=== PATIENT | female | born 1975 | race Caucasian/White ===

== ENCOUNTER 2017-06-21 09:14 | Emergency (ER) | payer MEDICAID ==
[2017-06-21 09:32] VITALS: RESP 18
--- NOTE | 2017-06-21 10:24 | EDPHY ---
H & P Time Seen by Provider: 06/21/17 09:33 HPI/ROS: CHIEF COMPLAINT: Right ankle injury HISTORY OF PRESENT ILLNESS: 42-year-old female presents to the emergency department with right ankle injury. This morning she was walking down some steps and inverted her right ankle. Patient has a history of nerve damage from previous back surgery over 13 years ago. She thinks that she just stepped down wrong and likely on the lateral aspect of her right foot. She denies pain in the right foot. Denies calf pain. Denies knee pain. Denies chest pain or difficulty breathing. ROS: Denies numbness or tingling in her toes, pain in her right knee or hip. 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 Nontender to palpate over the lateral aspect of the right ankle. Nontender to palpate over the base of the 5th metatarsal of the right foot. She has full dorsi and plantar flexion of the right foot. Normal sensation to light touch with normal 2 point discrimination. Strong dorsalis pedis pulse on the dorsal aspect of the right foot. Calf is nontender. Right knee is nontender. Constitutional: Initial Vital Signs Temperature (C) 37.3 C 06/21/17 09:20 Heart Rate 107 H 06/21/17 09:20 Respiratory Rate 18 06/21/17 09:20 Blood Pressure 132/100 H 06/21/17 09:20 O2 Sat (%) 96 06/21/17 09:20 O2 Delivery Mode Room Air Allergies/Adverse Reactions: Penicillins Allergy (Mild, Verified 06/21/17 09:29) Rash Sulfa (Sulfonamide Antibiotics) Allergy (Mild, Verified 06/21/17 09:29) Rash Home Medications: Medication Instructions Recorded Vicodin 5-300 mg Tablet 01/09/16 Hydrocodone/APAP 5/325 [[place] 1 - 2 each PO Q6 PRN #20 tab 07/10/16 5/325] traZODone [traZODONE 100MG (*)] 100 mg PO 06/21/17 MDM/Departure - MDM Imaging Results: Imaging Impressions Ankle X-Ray 06/21/17 09:22 Impression: There is no acute osseous abnormality identified. Imaging: I viewed and interpreted images myself Procedures: Patient was placed in Velcro ankle stirrup splint and examined post application in good placement with normal [place] WIGS. ED Course/Re-evaluation: 42-year-old female presents to the emergency department with right ankle pain. X-rays reveal no fractures. She was placed in Velcro ankle stirrup splint and given orthopedic referral. Patient requested narcotic pain medication I discussed that it would be in her best interest to take anti-inflammatories. We gave her narcotic precautions. She verbalized understanding and agrees that no prescription for narcotics will be given. - Depart Disposition: Home, Routine, Self-Care Clinical Impression: Right ankle sprain Qualifiers: Encounter type: initial encounter Involved ligament of ankle: unspecified ligament Qualified Code(s): S93.401A - Sprain of unspecified ligament of right ankle, initial encounter Condition: Good Instructions: Ankle Sprain (ED), Ankle Stirrup Splint (ED) Additional Instructions: Splint for comfort and support. Ibuprofen 600 mg every 8 hours as needed for pain. Weightbear as tolerated. Return to the emergency department if you worsening pain, worsening instability, or if you feel worse in any way. Referrals: Raúl Crabtree MD [Medical Doctor] - 5-7 days, call for appt. (Orthopedic surgeon on-call)
[2017-06-21 10:45] VITALS: BP 132/91; PULSE 92; TEMP 98.2; O2SAT 94
== END 2017-06-21 10:45 | disposition home or self-care (01) ==
DX: S93.401A Sprain of unspecified ligament of right ankle, initial encounter (principal); X58.XXXA Exposure to other specified factors, initial encounter; Y99.8 Other external cause status; Y93.01 Activity, walking, marching and hiking
CPT/HCPCS: L4350

== ENCOUNTER 2017-12-18 09:38 | Emergency (ER) | payer MEDICAID ==
[2017-12-18 09:47] VITALS: RESP 18
--- NOTE | 2017-12-18 10:05 | EDPHY ---
General - History Smoking Status: Former smoker Narrative: CHIEF COMPLAINT: Puncture to the left buttock, foreign body HISTORY OF PRESENT ILLNESS: Patient presents with complaints of left buttock pain status post puncture wound. This occurred last Saturday, 8 days ago. This happened after a broken champagne glass punctured left buttock. This was during intercourse. She noted some bleeding from the site. She had a superficial site next to this where glass has fallen out of. She has moderate pain to the area. The wound remains open and continues to bleed. There is some drainage from it. No fever. No surrounding redness. No changes to her bowel movements. No fecal material from the wound. She thinks that her tetanus is up-to-date. No other associated complaints or modifying factors. TIME OF INJURY: December 10 TETANUS STATUS: November 2010 MEDICAL/SURGICAL/SOCIAL HISTORY: L4-5 left-sided radiculopathy. Status post tubal ligation and lumbar fusion laminectomy. REVIEW OF SYSTEMS: Ten systems reviewed and are negative unless otherwise noted in the HPI EXAMINATION General Appearance: Alert, no distress Head: normocephalic, atraumatic Cardiovascular: Tachycardic rate. Symmetric DP pulses 2+. Good signs of perfusion Neurological: A&O, sensory symmetric, strength symmetric Skin: Warm and dry, no rash. There is a puncture wound to the left buttock medially midway down the curvature of the buttock. There is a 1 cm area open with serous drainage. No purulence. No surrounding cellulitis. No warmth to the touch. Extremities: Nontender, no pedal edema DIFFERENTIAL DIAGNOSES: Including but not limited to puncture wound, soft tissue foreign body, abscess MDM: 10:00 a.m. Puncture wound to left medial buttock from glass 7 days ago. There is no active bleeding but there is a 1 cm wound that is open with subcutaneous tissue exposed. Vital signs are within normal limits with mild tachycardia, and she is in no acute distress. I am starting with plain film two view to look for obvious foreign body. May need to proceed to CT scan for further delineation given the delayed presentation the depth of the wound. 10:30 a.m. X-ray unremarkable. I have discussed the case with Dr. Tobar, we have discussed ultrasound of the buttock to look for foreign body. I discussed with the patient she is agreeable to this. She will be kept NPO in the case that surgical intervention is necessary. 12:00 p.m. Case discussed with radiologist Dr. Howell. There is no deep foreign body identified. There is a superficial area of echogenicity as documented. I will anesthetize and evaluate the wound by direct visualization further 1:00 p.m. I discussed the case with Dr. Whiteside after the radiology findings. We both agree that the wound is in reasonable presentation to be closed. I anesthetized the area with lidocaine. I probed the area with sterile glove and sterile instruments. I did not find any deep or superficial foreign body. There is no signs of infection. I copiously irrigated the wound with sterile saline, 500 mL as. I then closed the wound as below. I will place her on Keflex antibiotics. She has a penicillin allergy but has tolerated Keflex in the past. I discussed 48 hr wound check, daily wound care and ED precautions. We discussed 7 days suture removal. She is comfortable this plan and discharged home stable condition. PROCEDURE: Laceration repair Consent: Verbal Location: Left buttock Length of repair: 1.25 cm curvilinear Complexity: Simple Layer involvement: Single Anesthesia: Local. 1% lidocaine plain. 5 mL Irrigation: Extensive Debridement: None Procedure description: Following good anesthesia, the wound was copiously irrigated. Wound bed was explored with a sterile glove, and there is no foreign body noted. Wound borders were approximated well with good hemostasis. Tolerated well without complication. Suture/Staple material: 4-0 Ethilon, 3 simple interrupted sutures Wound care: Routine as discussed Suture/Staple removal: 7 Days SUPERVISION: Patient was independently examined, but I discussed the case with my secondary supervising physician Dr. Whiteside ED Precautions: Worsening pain. Erythema, edema, cyanosis, pallor, paresthesia or anesthesia. (Suhail Rivas) Medical Decision Making: I did not see this patient while she was in the emergency department. However her care was discussed with the PA while the patient was in the department. I agree with treatment plan and management. IM the secondary supervising physician (Greg Whiteside) - Objective Vital Signs: Initial Vital Signs Temperature (C) 37.5 C 12/18/17 09:43 Heart Rate 117 H 12/18/17 09:43 Respiratory Rate 18 12/18/17 09:43 Blood Pressure 144/89 H 12/18/17 09:43 O2 Sat (%) 97 12/18/17 09:43 O2 Delivery Mode Room Air Allergies/Adverse Reactions: Penicillins Allergy (Mild, Verified 06/21/17 09:29) Rash Sulfa (Sulfonamide Antibiotics) Allergy (Mild, Verified 06/21/17 09:29) Rash Home Medications: Medication Instructions Recorded Hydrocodone/APAP 5/325 [[place] 1 - 2 each PO Q6 PRN #20 tab 07/10/16 5/325] Cephalexin [Keflex (*)] 500 mg PO QID #28 cap 12/18/17 Lorazepam 12/18/17 Ondansetron Odt [Zofran Odt 4 mg 4 mg PO Q6 PRN #7 tab 12/18/17 (*)] oxyCODONE HCL/ACETAMINOPHEN 1 each PO Q4-6PRN PRN #7 tablet 12/18/17 [Percocet 5-325 mg Tablet] Departure - Departure Disposition: Home, Routine, Self-Care Clinical Impression: Puncture wound of buttock without foreign body Condition: Good Instructions: Care For Your Stitches (ED), Laceration (ED), Puncture Wound (ED) Additional Instructions: 1. Antibiotics as prescribed to completion 2. Pain medication as prescribed as needed 3. Daily wound care as discussed 4. ED precautions for infection as discussed as needed 5. Return to ED in 7 days for suture removal Referrals: Arlene Cook MD [Primary Care Provider] - As per Instructions Physician,Emergency Dept, [Medical Doctor] - As per Instructions (7 days for suture removal) Prescriptions: Cephalexin [Keflex (*)] 500 mg PO QID #28 cap Ondansetron Odt [Zofran Odt 4 mg (*)] 4 mg PO Q6 PRN #7 tab PRN Reason: Nausea/Vomiting, Use 1st oxyCODONE HCL/ACETAMINOPHEN [Percocet 5-325 mg Tablet] 1 each PO Q4-6PRN PRN #7 tablet PRN Reason: Pain, Breakthrough
[2017-12-18] MEDS ORDERED: BACITRACIN OINTMENT 1 PACKET TP ONE (13:01)
[2017-12-18 14:00] VITALS: BP 109/90; PULSE 110; TEMP 98.2; O2SAT 96
== END 2017-12-18 14:03 | disposition home or self-care (01) ==
PROC: 0HQ8XZZ Repair Buttock Skin, External Approach (ICD-10-PCS; principal; 2017-12-18)
DX: S31.823A Puncture wound without foreign body of left buttock, initial encounter (principal); W25.XXXA Contact with sharp glass, initial encounter

== ENCOUNTER 2018-02-10 03:05 | Observation (INO) | payer MEDICAID ==
[2018-02-10] MEDS ORDERED: FAMOTIDINE 20 MG/NACL 50 ML IV ONE (03:09)
[2018-02-10] MEDS ORDERED: ONDANSETRON 4 MG/2 ML VIAL IVP ONE (03:09)
[2018-02-10] MEDS ORDERED: PANTOPRAZOLE SODIUM 40 MG VIAL IVP ONE (03:09)
[2018-02-10] MEDS ORDERED: NS 1,000 ML IV ONE ×2 (03:09)
--- NOTE | 2018-02-10 03:18 | EDPHY ---
H & P Stated Complaint: hematemesis Time Seen by Provider: 02/10/18 03:08 HPI/ROS: HPI The patient presents brought in by ambulance for hematemesis. She has a longstanding history of alcohol abuse and has been bingeing on alcohol lately, last had 3 beers last night. She awoke once in the night and had clear emesis. She made herself a snack and went back to bed. She awoke about 40 min prior to arrival and felt nauseated. She went to the bathroom and had several episodes of bloody vomitus, this was dark and with blood clots. Has mild epigastric abdominal pain which is achy in nature. She does not have any dark or bloody stools. She has no prior history of hematemesis. Her sister expresses that her family is quite concerned about her and she is going through some crises in regards to her mental health. She is followed by a therapist for the last 2 years but has not experience much progress. Her sister is concerned that she may be abusing her prescription Vicodin and benzodiazepines. REVIEW OF SYSTEMS Constitutional: No fever, no chills. Eyes: No discharge. ENT: No sore throat. Cardiovascular: No chest pain, no palpitations. Respiratory: No cough, no shortness of breath. Gastrointestinal: See HPI Genitourinary: No hematuria. Musculoskeletal: No back pain. Skin: No rashes. Neurological: No headache. PMHx: Prior spinal surgery, generalized anxiety disorder Soc Hx: Lives at home, single mom with a daughter, history of alcohol abuse PHYSICAL General Appearance: Alert, no distress Eyes: Pupils equal and round no pallor or injection ENT, Mouth: Mucous membranes moist Respiratory: There are no retractions, lungs are clear to auscultation Cardiovascular: Tachycardic rate and regular rhythm Gastrointestinal: Abdomen is soft with mild epigastric tenderness, no masses, bowel sounds normal Neurological: A&O, moves all extremities Skin: Warm and dry, no rashes Musculoskeletal: Neck is supple non tender Extremities: symmetrical, full range of motion Psychiatric: Patient is oriented X 3, there is no agitation Source: Patient - Personal History Tetanus Vaccine Date: < 10 years - Medical/Surgical History Hx Asthma: No Hx Chronic Respiratory Disease: No Hx Diabetes: No Hx Cardiac Disease: No Hx Renal Disease: No Hx Cirrhosis: No Hx Alcoholism: No Hx HIV/AIDS: No Hx Splenectomy or Spleen Trauma: No Other PMH: spinal cord surgery from surgery @ L4-5 nerve root. right foot drop . back and ankle surgery /CHRONIC PAIN. DDD, anxiety, , tubal ligation - Social History Smoking Status: Former smoker Constitutional: Initial Vital Signs Temperature (C) 36.6 C 02/10/18 03:05 Heart Rate 124 H 02/10/18 03:05 Respiratory Rate 18 02/10/18 03:05 Blood Pressure 126/92 H 02/10/18 03:05 O2 Sat (%) 98 02/10/18 03:05 O2 Delivery Mode Room Air Allergies/Adverse Reactions: Penicillins Allergy (Mild, Verified 02/10/18 03:17) Rash Sulfa (Sulfonamide Antibiotics) Allergy (Mild, Verified 02/10/18 03:17) Rash Home Medications: Medication Instructions Recorded Lorazepam 12/18/17 oxyCODONE HCL/ACETAMINOPHEN 1 each PO Q4-6PRN PRN #7 tablet 12/18/17 [Percocet 5-325 mg Tablet] Medical Decision Making - Diagnostics EKG Interpretation: EKG: Complete interpretation has been separately recorded in the [facility] archive. Summary impression: Sinus tachycardia Differential Diagnosis: This is a 42-year-old female, longstanding history of alcohol abuse with recent alcohol binge who presents brought in by ambulance from home with hematemesis. This is clotted blood and dark blood which occurred about 3 times. On arrival, she is tachycardic, otherwise vital signs are stable. Her clothes are saturated with bright red blood. She has abdominal tenderness. Differential diagnosis includes alcoholic gastritis, duodenal ulcer, esophageal varices. In the emergency department, patient was given 2 L of IV fluid. She was given famotidine and Protonix. She had no ongoing vomiting. She was persistently tachycardic. She said she was feeling quite anxious and was given Ativan for this. Labs were checked and did reveal leukocytosis, hemoglobin is normal. Her BUN is elevated. I discussed the case with the hospitalist Dr. Palma and we will admit her. I have consulted with Gastroenterology Dr. Nguyen, their service will see the patient in consultation this morning. - Data Points Laboratory Results: Laboratory Results 02/10/18 03:10 02/10/18 03:10 03/12/18 03/12/18 03/12/18 03:10 03:10 03:10 WBC 15.78 10^3/uL H 10^3/uL (3.80-9.50) RBC 4.88 10^6/uL 10^6/uL (4.18-5.33) Hgb 15.4 g/dL g/dL (12.6-16.3) Hct 46.0 % % (38.0-47.0) MCV 94.3 fL fL (81.5-99.8) MCH 31.6 pg pg (27.9-34.1) MCHC 33.5 g/dL g/dL (32.4-36.7) RDW 13.8 % % (11.5-15.2) Plt Count 330 10^3/uL 10^3/uL (150-400) MPV 10.3 fL fL (8.7-11.7) Neut % (Auto) 58.2 % % (39.3-74.2) Lymph % (Auto) 29.9 % % (15.0-45.0) [place] % (Auto) 10.2 % % (4.5-13.0) Eos % (Auto) 0.8 % % (0.6-7.6) Baso % (Auto) 0.5 % % (0.3-1.7) Nucleat RBC Rel Count 0.0 % % (0.0-0.2) Absolute Neuts (auto) 9.17 10^3/uL H 10^3/uL (1.70-6.50) Absolute Lymphs (auto) 4.72 10^3/uL H 10^3/uL (1.00-3.00) Absolute Monos (auto) 1.61 10^3/uL H 10^3/uL (0.30-0.80) Absolute Eos (auto) 0.13 10^3/uL 10^3/uL (0.03-0.40) Absolute Basos (auto) 0.08 10^3/uL 10^3/uL (0.02-0.10) Absolute Nucleated RBC 0.00 10^3/uL 10^3/uL (0-0.01) Immature Gran % 0.4 % % (0.0-1.1) Immature Gran # 0.07 10^3/uL 10^3/uL (0.00-0.10) PT 13.3 SEC SEC (12.0-15.0) INR 0.99 (0.83-1.16) APTT 21.3 SEC L SEC (23.0-38.0) Sodium 145 mEq/L mEq/L (135-145) Potassium 4.4 mEq/L mEq/L (3.5-5.2) Chloride 102 mEq/L mEq/L (97-110) Carbon Dioxide 22 mEq/l mEq/l (22-31) Anion Gap 21 mEq/L H mEq/L (8-16) BUN 25 mg/dL H mg/dL (7-23) Creatinine 0.9 mg/dL mg/dL (0.6-1.0) Estimated GFR > 60 Glucose 152 mg/dL H mg/dL (70-100) Calcium 10.1 mg/dL mg/dL (8.5-10.4) Total Bilirubin 0.9 mg/dL mg/dL (0.1-1.4) Conjugated Bilirubin 0.3 mg/dL mg/dL (0.0-0.5) Unconjugated Bilirubin 0.6 mg/dL mg/dL (0.0-1.1) AST 36 IU/L IU/L (14-46) ALT 39 IU/L IU/L (9-52) Alkaline Phosphatase 55 IU/L IU/L (38-126) Total Protein 7.9 g/dL g/dL (6.3-8.2) Albumin 5.1 g/dL H g/dL (3.5-5.0) Lipase 130 IU/L IU/L (23-300) Ethyl Alcohol < 10 mg/dL mg/dL (0-10) Medications Given: Discontinued Medications Sodium Chloride (Ns) 1,000 mls @ 0 mls/hr IV EDNOW ONE; Wide Open PRN Reason: Protocol Stop: 02/10/18 03:10 Last Admin: 02/10/18 03:28 Dose: 1,000 mls Sodium Chloride (Ns) 1,000 mls @ 0 mls/hr IV EDNOW ONE; Wide Open PRN Reason: Protocol Stop: 02/10/18 03:10 Last Admin: 02/10/18 03:28 Dose: 1,000 mls Famotidine/Sodium Chloride (Pepcid 20 Mg (Premix)) 50 mls @ 200 mls/hr IV EDNOW ONE Stop: 02/10/18 03:23 Last Admin: 02/10/18 03:31 Dose: 50 mls Lorazepam (Ativan Injection) 1 mg IVP EDNOW ONE Stop: 02/10/18 04:07 Last Admin: 02/10/18 04:10 Dose: 1 mg Ondansetron HCl (Zofran) 4 mg IVP EDNOW ONE Stop: 02/10/18 03:10 Last Admin: 02/10/18 03:29 Dose: 4 mg Pantoprazole Sodium (Protonix) 80 mg IVP EDNOW ONE Stop: 02/10/18 03:10 Last Admin: 02/10/18 03:44 Dose: 80 mg Departure - Departure Condition: Fair Referrals: Arlene Cook MD [Primary Care Provider] - As per Instructions
--- NOTE | 2018-02-10 03:29 | CPEKG ---
Heart Rate: 117 RR Interval: 513 P-R Interval: 120 QRSD Interval: 82 QT Interval: 336 QTC Interval: 469 P [place]: 66 QRS [place]: 67 T Wave [place]: 17 EKG Severity - BORDERLINE ECG - EKG Impression: SINUS TACHYCARDIA EKG Impression: PROBABLE LEFT ATRIAL ABNORMALITY Electronically Signed By: Adelia Barr 10-Feb-2018 06:21:52
[2018-02-10 03:56] LABS: PLATELET COUNT 330 10^3/uL (150-400)
[2018-02-10 04:05] LABS: INR 0.99 (0.83-1.16); PROTIME(PATIENT) 13.3 SEC (12.0-15.0)
[2018-02-10] MEDS ORDERED: LORazepam 2 MG/ML INJ IVP ONE ×2 (04:06→04:55)
[2018-02-10] MEDS ORDERED: ACETAMINOPHEN 325 MG TAB PO PRN (06:16)
[2018-02-10] MEDS ORDERED: LORazepam 2 MG/ML INJ IVP PRN (06:16)
[2018-02-10] MEDS ORDERED: ONDANSETRON 4 MG/2 ML VIAL IVP PRN ×2 (06:16→11:03)
[2018-02-10] MEDS ORDERED: ONDANSETRON DISINTEGRATING 4 MG TAB PO PRN (06:16)
[2018-02-10] MEDS ORDERED: NS 1,000 ML IV SCH (06:30)
[2018-02-10 08:01] LABS: PLATELET COUNT 237 10^3/uL (150-400)
--- NOTE | 2018-02-10 08:47 | PDGENHP ---
History and Physical - Chief Complaint Hematemesis - History of Present Illness Source-patient provides history appears reliable. EMR was reviewed and case discussed with ED provider. HPI - pleasant 42-year-old female with past medical history significant for generalized anxiety disorder, substance abuse disorder, chronic pain who presents emergency department today after several episodes of large volume gross hematemesis. Patient reports that she was experiencing some epigastric abdominal pain intermittently. She woke up in the evening and had episode of nonbloody nonbilious emesis. Patient tried to have a snack and went back to bed unfortunately she woke up and began to have on large volume hematemesis. She also reports that since his arrival to the emergency department that she has had a small on black tarry stool. Patient has a chest pain. No palpitations. No lightheadedness. Epigastric pain is described as stabbing and sore at baseline. She also reports that during these episodes patient had some diaphoresis and dizziness but these have currently resolved. Patient called EMS and she was found with her short covered in blood. Patient was noted to be normotensive but significantly tachycardic into the 120s. Patient reports history of alcohol abuse previously in remission however patient has been having occasional intake and binges. Patient also notes that she has been having intermittent epigastric abdominal pain for the last several weeks occasionally associated with food or alcohol worsening her symptoms. History Information - Allergies/Home Medication List Allergies/Adverse Reactions: Penicillins Allergy (Mild, Verified 02/10/18 03:17) Rash Sulfa (Sulfonamide Antibiotics) Allergy (Mild, Verified 02/10/18 03:17) Rash Home Medications: LORazepam [Ativan (*)] 1 mg PO Q8HRS PRN 12/18/17 [Last Taken 02/06/18] Calcium Carbonate [Oyster Shell Calcium 500 mg (*)] 500 mg PO DAILY 02/10/18 [ Last Taken Unknown] Cholecalciferol Vit D3 [Vitamin D3 (*)] 1,000 units PO DAILY 02/10/18 [Last Taken Unknown] Herbals/Supplements -Info Only 1 ea PO DAILY 02/10/18 [Last Taken Unknown] Multivitamins [Multivitamin (*)] 1 each PO DAILY 02/10/18 [Last Taken Unknown] oxyCODONE/APAP 5/325 [Percocet 5/325 (*)] 1 tab PO Q4-6PRN PRN 02/10/18 [Last Taken 02/09/18 09:00] I have personally reviewed and updated: family history, medical history, social history, surgical history - Past Medical History Additional medical history: Degenerative disc disease, chronic back pain, generalized anxiety disorder, substance abuse disorder, chronic right footdrop and history of hemorrhoids - Surgical History Additional surgical history: Spine surgery L4-5, ankle repair, , BTL - Family History Additional family history: Mother with history CA, father with CAD and alcoholism - Social History Smoking Status: Light smoker (Patient reports she has been trying to cut back) Tobacco Use: Cigarettes Alcohol Use: Occasionally (Patient has been drinking alcohol intermittently. This she has a previous history of heavy alcohol intake but now is only occasionally and she is trying to quit.) Drug Use: None Additional social history: Patient lives with her 8-year-old daughter daughter who is currently being watched by patient's mother. Cor status-full Review of Systems Review of Systems: ROS: 10pt was reviewed & negative except for what was stated in HPI & below Physical Exam Physical Exam: Selected Entries 02/10/18 03:05 Blood Pressure Automatic Method Heart Rate 124 H Respiratory 18 Rate O2 Sat (%) 98 Temperature (C) 36.6 C Blood Pressure 126/92 H Mean Arterial 103 H Pressure (MAP) O2 Delivery Room Air Mode Temperature Oral Source Temp Pulse Resp BP Pulse Ox 37.0 C 112 H 16 128/88 H 96 02/10/18 06:24 02/10/18 06:24 02/10/18 06:24 02/10/18 06:24 02/10/18 06:24 Constitutional: no apparent distress, not in pain, other (Anxious but awake and interactive.) Eyes: PERRL, anicteric sclera, EOMI Ears, Nose, Mouth, Throat: no oral mucosal ulcers, dry mucous membranes, other ( No nasal discharge), No poor dentition Cardiovascular: regular rate and rhythym (Tacky), no murmur, rub, or gallop, tachycardia, No edema Peripheral Pulses: 2+: dorsalis-pedis (R), dorsalis-pedis (L) Respiratory: no respiratory distress, no rales or rhonchi, clear to auscultation Gastrointestinal: normoactive bowel sounds, no palpable masses, tenderness ( Epigastrium.), No ascites, No graves's sign, No distension Genitourinary: no bladder tenderness, No huertas in urethra Skin: warm, normal color, no rashes or abrasions, other (Patient does not appear pale) Musculoskeletal: full muscle strength, other (Patient able to sit up independently. Moves all extremities.), No generalized weakness Neurologic: AAOx3, sensation intact bilaterally, CN II-XII Intact, No facial droop Psychiatric: interacting appropriately, not encephalopathic, thought process linear, anxious, No poor insight, No poor judgement, No poor memory Lab Data & Imaging Review 02/10/18 07:45 02/10/18 03:10 WBC 10.31 10^3/uL (3.80-9.50) H 02/10/18 07:45 RBC 3.84 10^6/uL (4.18-5.33) L 02/10/18 07:45 Hgb 12.2 g/dL (12.6-16.3) L 02/10/18 07:45 Hct 35.3 % (38.0-47.0) L D 02/10/18 07:45 MCV 91.9 fL (81.5-99.8) 02/10/18 07:45 MCH 31.8 pg (27.9-34.1) 02/10/18 07:45 MCHC 34.6 g/dL (32.4-36.7) 02/10/18 07:45 RDW 13.7 % (11.5-15.2) 02/10/18 07:45 Plt Count 237 10^3/uL (150-400) D 02/10/18 07:45 MPV 9.9 fL (8.7-11.7) 02/10/18 07:45 Neut % (Auto) 72.3 % (39.3-74.2) 02/10/18 07:45 Lymph % (Auto) 18.9 % (15.0-45.0) 02/10/18 07:45 [place] % (Auto) 7.7 % (4.5-13.0) 02/10/18 07:45 Eos % (Auto) 0.4 % (0.6-7.6) L 02/10/18 07:45 Baso % (Auto) 0.4 % (0.3-1.7) 02/10/18 07:45 Nucleat RBC Rel Count 0.0 % (0.0-0.2) 02/10/18 07:45 Absolute Neuts (auto) 7.46 10^3/uL (1.70-6.50) H 02/10/18 07:45 Absolute Lymphs (auto) 1.95 10^3/uL (1.00-3.00) 02/10/18 07:45 Absolute Monos (auto) 0.79 10^3/uL (0.30-0.80) 02/10/18 07:45 Absolute Eos (auto) 0.04 10^3/uL (0.03-0.40) 02/10/18 07:45 Absolute Basos (auto) 0.04 10^3/uL (0.02-0.10) 02/10/18 07:45 Absolute Nucleated RBC 0.00 10^3/uL (0-0.01) 02/10/18 07:45 Immature Gran % 0.3 % (0.0-1.1) 02/10/18 07:45 Immature Gran # 0.03 10^3/uL (0.00-0.10) 02/10/18 07:45 PT 13.3 SEC (12.0-15.0) 02/10/18 03:10 INR 0.99 (0.83-1.16) 02/10/18 03:10 APTT 21.3 SEC (23.0-38.0) L 02/10/18 03:10 Sodium 145 mEq/L (135-145) 02/10/18 03:10 Potassium 4.4 mEq/L (3.5-5.2) 02/10/18 03:10 Chloride 102 mEq/L (97-110) 02/10/18 03:10 Carbon Dioxide 22 mEq/l (22-31) 02/10/18 03:10 Anion Gap 21 mEq/L (8-16) H 02/10/18 03:10 BUN 25 mg/dL (7-23) H 02/10/18 03:10 Creatinine 0.9 mg/dL (0.6-1.0) 02/10/18 03:10 Estimated GFR > 60 02/10/18 03:10 Glucose 152 mg/dL (70-100) H 02/10/18 03:10 Calcium 10.1 mg/dL (8.5-10.4) 02/10/18 03:10 Total Bilirubin 0.9 mg/dL (0.1-1.4) 02/10/18 03:10 Conjugated Bilirubin 0.3 mg/dL (0.0-0.5) 02/10/18 03:10 Unconjugated Bilirubin 0.6 mg/dL (0.0-1.1) 02/10/18 03:10 AST 36 IU/L (14-46) 02/10/18 03:10 ALT 39 IU/L (9-52) 02/10/18 03:10 Alkaline Phosphatase 55 IU/L (38-126) 02/10/18 03:10 Total Protein 7.9 g/dL (6.3-8.2) 02/10/18 03:10 Albumin 5.1 g/dL (3.5-5.0) H 02/10/18 03:10 Lipase 130 IU/L (23-300) 02/10/18 03:10 Ethyl Alcohol < 10 mg/dL (0-10) 02/10/18 03:10 EKG Interpretation: Positive for: normal sinsus rhythm EKG additional interpertation: Sinus tach in the 120s. No acute ST changes. Small Q-waves in the inferolateral leads. QTC 469. Assessment & Plan Assessment: Upper GI bleeding (hematemesis) - suspicious for either gastritis versus a gastric ulcer or AVM. Patient has not had any further episodes of hematemesis since arrival to the ER. She has reported 1 melanic stool. Patient has received bolus dosing have Protonix. She will be made NPO. GI was consulted from the emergency department with plans for EGD later this morning. Acute blood loss anemia-H&H does not require transfusion at this time but will monitor with serial H and H. Patient has remained tachycardic in the 120s however blood pressure is a bit remain normotensive. Epigastric pain-supportive care. p.r.n. Pain meds. Tachycardia-likely related to patient's acute blood loss versus severe anxiety. Will check a thyroid and a U tox in addition given patient's history of polysubstance abuse. ETOH dependence-patient's alcohol level is negative at this time. Will monitor for evidence of withdrawal. Patient denies any daily alcohol intake. Hyperglycemia-this is nonfasting lab. Will plan to monitor with repeat a.m. Sugars. No previous history of diabetes. Generalized anxiety disorder patient received 2 mg of Ativan in the emergency department. Reassured patient. She should continue with her on non pharmacologic interventions for relief. Nausea and vomiting-p.r.n. Zofran, p.r.n. Phenergan. If needed consider IV Haldol. FEN - IV fluid supplementation while NPO. Electrolyte replacement p.r.n.. PPX-SCDs only. Anticoagulation contraindicated in setting of acute bleed. Cor status-full Disposition patient admitted observation status on PCU for close cardiac monitoring with her tachycardia. Consultations-GI to see patient in the a.m. Anticipate EGD.
[2018-02-10] MEDS ORDERED: PROMETHAZINE HCL 25 MG/ML INJ IVP PRN (08:57)
--- NOTE | 2018-02-10 10:24 | PDANEPAE ---
ANE History of Present Illness Vomiting blood ANE Past Medical History - Cardiovascular History Hx Hypertension: No Hx Arrhythmias: No Hx Coronary Artery / Peripheral Vascular Disease: No Hx CHF / Valvular Disease: No Cardiovascular History Comment: SL ELEVATED BP ON OCC, NO MEDS NEEDED - Pulmonary History Hx COPD: No Hx Asthma/Reactive Airway Disease: No Hx Recent Upper Respiratory Infection: No Hx Oxygen in Use at Home: No Hx Sleep Apnea: No Pulmonary History Comment: NO SOB W STAIRS - Neurologic History Hx Cerebrovascular Accident: No Hx Seizures: No Hx Dementia: No Neurologic History Comment: NERVE NUMBNESS R SIDE OF R FOOT - Endocrine History Hx Diabetes: No - Renal History Hx Renal Disorders: No - Liver History Hx Hepatic Disorders: No - Neurological & Psychiatric Hx Hx Neurological and Psychiatric Disorders: No - Cancer History Hx Cancer: No - Congenital Disorder History Hx Congenital Disorders: No - GI History Hx Gastrointestinal Disorders: No - Other Health History Other Health History: DESIRES STERILIZATION. LOW BACK PAIN. DDD. SCIATICA R - Chronic Pain History Chronic Pain: Yes (LOW BACK PAIN) - Surgical History Prior Surgeries: C SECT '. LAMINECTOMY '. R ANKLE ' ANE Review of Systems Review of Systems: ANE Patient History - Allergies Allergies/Adverse Reactions: Penicillins Allergy (Mild, Verified 02/10/18 03:17) Rash Sulfa (Sulfonamide Antibiotics) Allergy (Mild, Verified 02/10/18 03:17) Rash - Home Medications Home Medications: LORazepam [Ativan (*)] 1 mg PO Q8HRS PRN 12/18/17 [Last Taken 02/06/18] Calcium Carbonate [Oyster Shell Calcium 500 mg (*)] 500 mg PO DAILY 02/10/18 [ Last Taken Unknown] Cholecalciferol Vit D3 [Vitamin D3 (*)] 1,000 units PO DAILY 02/10/18 [Last Taken Unknown] Herbals/Supplements -Info Only 1 ea PO DAILY 02/10/18 [Last Taken Unknown] Multivitamins [Multivitamin (*)] 1 each PO DAILY 02/10/18 [Last Taken Unknown] oxyCODONE/APAP 5/325 [Percocet 5/325 (*)] 1 tab PO Q4-6PRN PRN 02/10/18 [Last Taken 02/09/18 09:00] - Smoking Hx Smoking Status: Light smoker (Patient reports she has been trying to cut back) - Alcohol Use Alcohol Use: Occasionally (Patient has been drinking alcohol intermittently. This she has a previous history of heavy alcohol intake but now is only occasionally and she is trying to quit.) - Family Anes Hx Family Hx Anesthesia Complications: NONE ANE Labs/Vital Signs - Labs Result Diagrams: 02/10/18 07:45 02/10/18 03:10 - Vital Signs Blood Pressure: 147/88 Heart Rate: 110 Respiratory Rate: 16 O2 Sat (%): 97 Height: 167.64 cm Weight: 77 kg ANE Physical Exam - Airway Neck exam: FROM Mallampati Score: Class 2 Mouth exam: normal dental/mouth exam - Pulmonary Pulmonary: no respiratory distress - Cardiovascular Cardiovascular: regular rate and rhythym - ASA Status ASA Status: II ANE Anesthesia Plan Anesthesia Plan: MAC
[2018-02-10] MEDS ORDERED: PROPOFOL/EMULSION 500 MG/50 ML BOTTLE IV ONE (10:30)
[2018-02-10] MEDS ORDERED: LIDOCAINE 2% 5 ML SDV ONE (10:30)
[2018-02-10] MEDS ORDERED: PROPOFOL 200 MG/20 ML VIAL ONE (10:50)
[2018-02-10] MEDS ORDERED: LORazepam 1 MG TAB PO PRN (10:53)
[2018-02-10] MEDS ORDERED: OXYCODONE/APAP 5/325 TAB PO PRN (10:53)
--- NOTE | 2018-02-10 11:02 | GIREPORT ---
Formerly [facility] Surgical Services - Endoscopy Department Patient Name: Carlotta Setiner Procedure Date: 02/10/2018 10:34 AM Patient Type: Inpatient Attending MD/ ER Physician: Kermit Nguyen MD Procedure: Upper GI endoscopy Indications: Hematochezia, Melena Providers: Kermit Nguyen MD Medicines: Sedation Required Anesthesia Staff Assistance Complications: No immediate complications. Description of Procedure: After obtaining informed consent, the endoscope was passed under direct vision. Throughout the procedure, the patient's blood pressure, pulse, and oxygen saturations were monitored continuously. The Endoscope was intro duced through the mouth, and advanced to the second part of duodenum. The [facility] er GI endoscopy was accomplished without difficulty. The patient tolerated th e procedure well. Findings: A medium non-bleeding Yuridia-Bergeron tear with stigmata of recent bleedi ng was found. Prevent bleeding, one hemostatic clip was successfully place d. There was no bleeding during the procedure. A mild Schatzki ring (acquired) was found at the gastroesophageal junct ion. A small hiatal hernia was present. The entire examined stomach was normal. Biopsies were taken with a cold forceps for histology. The examined duodenum was normal. Estimated Blood Loss: Estimated blood loss: none. Post Op Diagnosis: - Yuridia-Bergeron tear. Clip was placed. - Mild Schatzki ring. - Small hiatal hernia. - Normal stomach. Biopsied. - Normal examined duodenum. Recommendation: - Observe patient in the Hospital. - Clear liquid diet. - Use Protonix (pantoprazole) 40 mg PO BID. - Thank you for allowing me to participate in the care of your patient. Attending Participation: I personally performed the entire procedure. Kermit Nguyen MD Kermit Nguyen MD 02/10/2018 11:01:48 AM This report has been signed electronicallyStservando Nguyen MD Number of Addenda: 0 Note Initiated On: 02/10/2018 10:34 AM [email or web address]
[2018-02-10] MEDS ORDERED: NALOXONE HCL 0.4 MG/ML INJ IVP PRN (11:03)
[2018-02-10] MEDS ORDERED: fentaNYL 100 MCG/2 ML INJ IVP PRN (11:03)
--- NOTE | 2018-02-10 11:03 | POSTANESTH ---
Post Anesthetic Evaluation Cardiovascular Status: Normal, Stable Respiratory Status: Normal, Stable Level of Consciousness/Mental Status: Can Participate in Eval Pain Control: Adequate, Prn Tx Ordered Nausea/Vomiting Control: Adequate, Prn Tx Ordered Complications Possibly Related to Anesthesia: None Noted
--- NOTE | 2018-02-10 11:30 | GCON ---
[f rep st] CONSULTATION CHIEF COMPLAINT: Hematemesis. HISTORY OF PRESENT ILLNESS: I have been asked to see this very pleasant 42-year-old woman in consult ation by Dr. Mays for hematemesis. This 42-year-old woman has a history of generalized anxiety disor kary and substance abuse disorder. She has chronic pain; chronic back pain with chronic leg pain. She has presented into the emergency department after having several episodes of hematemesis, with nausea and vomiting and hematemesis. The patient was having some abdominal pain and discomfort. She does in termittently binge with alcohol. She had drunk 3 beers yesterday. Does take Advil on a frequent basis . She also has a history of reflux and heartburn. She denies any dysphagia. She woke up from sleep an d had abdominal discomfort and several episodes of vomiting with hematemesis. She described large sushant unts of clot and blood. She had no melena until this morning she did pass some black stool. She had s ome diaphoresis and dizziness. However, in the emergency department, she was hemodynamically stable. She had a normal hematocrit on admission. She did drop her blood count slightly during the night. Hem atocrit was 46 on admission and is 35.3 this morning. She did have an elevated BUN of 25 with a dolores l creatinine. She has no prior history of GI bleeding or ulcer disease. She has not had a prior endos copy or colonoscopy. PAST MEDICAL HISTORY: Remarkable for substance abuse, history of chronic back pain/leg pain, degener ative disk disease, generalized anxiety disorder, substance abuse disorder, right foot drop. PAST SURGICAL HISTORY: She has had previous laminectomy, previous , ankle surgery, bilatera l tubal ligation. ALLERGIES: Penicillin and sulfa. MEDICATIONS AT HOME: Include lorazepam, calcium carbonate, vitamin D3, herbal supplements, multivita mins, oxycodone. FAMILY HISTORY: Mother had a history of [place]. Father had coronary artery disease and alcoholism. Other alvarez, family history is negative as it pertains to chief complaint. SOCIAL HISTORY: She is a smoker, drinks alcohol as above. Does have a history of heavy alcohol use i n the past. She lives with an 8-year-old daughter. REVIEW OF SYSTEMS: Negative 10 systems, other than as mentioned in the HPI. PHYSICAL EXAMINATION: VITAL SIGNS: 147/88, heart rate of 110, respiratory rate 16, 97% sat. 37.1 Ghislaine sius is her temp. GENERAL: A very pleasant woman in no acute distress. HEENT: Normocephalic, atraumat ic, EOMI. Mucous membranes moist. NECK: Supple. No cervical adenopathy. LUNGS: Clear. CARDIAC: Normal S1, S2 without murmur. ABDOMEN: Benign, soft. No hepatosplenomegaly. Nontender. EXTREMITIES: Without clubbing, cyanosis, edema. SKIN: Warm, dry, and intact. NEURO: Nonfocal. PSYCH: Alert and oriented x 3 with normal affect. LABORATORY DATA: PT of 13.3, INR of 0.99, PTT of 21.3. Serum chemistry: Serum sodium 145, potassium 4.4, chloride of 102, CO2 22, BUN of 25, creatinine of 0.9, blood sugar of 152. Hemoglobin of 12.2, h ematocrit 35.3. IMPRESSION: A 42-year-old woman with hematemesis. Differential diagnosis includes a Yuridia-Bergeron te ar, severe erosive esophagitis, peptic ulcer disease. RECOMMENDATIONS: NPO. Serial H and H. IV fluids. IV Protonix. Proceed with urgent endoscopy. Will fo llow with you. /[id number]/MODL
[2018-02-10 11:39] VITALS: RESP 14; TEMP 98.5; O2SAT 95
[2018-02-10 14:32] VITALS: BP 122/89; PULSE 105
--- NOTE | 2018-02-10 16:04 | ASMTCMCOM ---
CM Note CM Note Notes: Patient discussed in rounds. Young female admitted through ED with GI bleed. HX if anxiety disorder and substance abuse. Lives independently and has an 8 year old daughter. Supportive family. Went for endoscopy and found to have Yuridia Bergeron tear. Patient"s family shares concerns regarding her behaviors, message left for Kaleigh Weldon but unlikely she can see today. The patient is seeing a therapist as an outpatient. She is decisional. Sees therapist Ellie Jung on a regular basis. Denies needs for resources. She is to dc home independently with family support. CM available should needs arise. Date Signed: 02/10/2018 04:03 PM Electronically Signed By:Smita Florentino RN
--- NOTE | 2018-02-10 16:05 | ASMTLACE ---
LACE Length of stay for Answers: Less than 1 day current admission Acuity / Level of Answers: No Care: Did the patient have an inpatient admission? # of Emergency department Answers: 1-2 visits in the last 6 months Social determinants Answers: History of substance abuse (ETOH, street drugs, prescription drugs, etc.) Score: 4 Date Signed: 02/10/2018 04:04 PM Electronically Signed By:Smita Florentino RN
[2018-02-10] MEDS ORDERED: PNEUMOCOCCAL 0.5ML VACCINE VIAL IM ONE (17:04)
--- NOTE | 2018-02-10 19:47 | GDS ---
[f rep st] DISCHARGE SUMMARY DIAGNOSES: 1. Upper gastrointestinal bleed secondary to Yuridia-Bergeron tear. 2. Degenerative disk disease and chronic back pain. 3. Generalized anxiety disorder. 4. Substance abuse disorder. CONSULTATIONS: Dr. Kermit Nguyen from Gastroenterology. PROCEDURES DONE: Upper endoscopy showing Yuridia-Bergeron tear status post clip. No obvious issues in her stomach or duodenum, small hiatal hernia noted. HOSPITAL COURSE: The patient is a 42-year-old who came in with nausea, vomiting, and bright red avel temesis. She was admitted to the hospital, went directly to EGD and they found a small Yuridia-Bergeron tear status post clipping. She otherwise had no obvious bleeding. We started feeding her clear liq uids. If she tolerates clears and has no further issues and is able to advance her diet by dinner ti me, she can go home later tonight. Her H and H were mildly decreased and currently stable. No other site of bleeding was found and her risk of rebleeding is quite low. CONDITION ON DISCHARGE: Good. Vital signs are stable. She is alert and oriented. Abdomen is benig n. She is no longer nauseated, and able to eat. DISCHARGE MEDICATIONS: Please see discharge medication form. Additionally, she was started on Laurel nix 40 mg twice daily. She is to continue this for 6 weeks. At the 4-week danna, she can cut it down to one tablet daily. FOLLOW UP INSTRUCTIONS: She should follow up with her primary care provider next week for a recheck. I did give enough Protonix for 1 month. She needs a refill to continue this for 6 weeks. Total time spent with patient on day of discharge is 30 minutes. /[id number]/MODL
[2018-02-10] MEDS ORDERED: PANTOPRAZOLE SODIUM 40 MG TAB PO SCH (21:00)
== END 2018-02-10 19:05 | disposition home or self-care (01) ==
LOC: EDUNIT# → F2W 06:22
PROVIDERS: ADMIT Family Medicine; ATTEND Family Medicine
DX: K22.6 Gastro-esophageal laceration-hemorrhage syndrome (principal); K22.2 Esophageal obstruction; K44.9 Diaphragmatic hernia without obstruction or gangrene
CPT/HCPCS: 43227; 43239; 93005; G0378; 80307; G0480; J0171; J2060; J2405; J2704

== ENCOUNTER → 2018-07-18 | Outpatient (CLI) | payer MEDICAID | LOC: FIMAGING 12:39 | PROVIDERS: ATTEND Internal Medicine | DX: Z12.31 Encounter for screening mammogram for malignant neoplasm of breast (principal) ==

== ENCOUNTER → 2018-08-01 | Outpatient (CLI) | payer MEDICAID | LOC: FIMAGING 12:08 | PROVIDERS: ATTEND Internal Medicine | DX: R92.8 Other abnormal and inconclusive findings on diagnostic imaging of breast (principal) ==

== ENCOUNTER → 2019-01-19 | Outpatient (CLI) | payer MEDICAID | LOC: FIMAGING 11:30 | PROVIDERS: ATTEND Internal Medicine | DX: R92.8 Other abnormal and inconclusive findings on diagnostic imaging of breast (principal) ==